=== PATIENT | female | born 1955 | race Caucasian/White ===

== ENCOUNTER 2017-08-26 05:23 | Inpatient (IN) | payer OTHER ==
[2017-08-19 10:29] LABS: ABSOLUTE BASOPHILS # (AUTO) 0.1 10^3/uL (0.0-0.2); ABSOLUTE EOSINOPHILS # (AUTO) 0.2 10^3/uL (0.0-0.6); ABSOLUTE LYMPHOCYTES (AUTO) 1.9 10^3/uL (0.5-4.7); ABSOLUTE MONOCYTES (AUTO) 0.5 10^3/uL (0.1-1.4); ABSOLUTE NEUT (AUTO) 5.5 10^3/uL (1.7-8.2); BASOPHILS % (AUTO) 0.6 % (0-2); EOSINOPHILS % (AUTO) 2.4 % (0-6); HEMATOCRIT 38.8 % (36.0-47.0); LYMPHOCYTES % (AUTO) 23.4 % (13-45); MEAN CORPUSCULAR HEMOGLOBIN 28.3 pg (27.0-33.4); MEAN CORPUSCULAR HGB CONC 33.5 g/dL (32.0-36.0); MEAN CORPUSCULAR VOLUME 85 fl (80-97); MONOCYTES % (AUTO) 5.6 % (3-13); PLATELET COUNT 245 10^3/uL (150-450); RED BLOOD COUNT 4.59 10^6/uL (3.72-5.28); RED CELL DISTRIBUTION WIDTH 13.7 % (11.5-14.0); TOTAL CELLS COUNTED % (AUTO) 100 %; WHITE BLOOD COUNT 8.1 10^3/uL (4.0-10.5)
[2017-08-19 10:54] LABS: ANION GAP 13 (5-19); BLOOD UREA NITROGEN 12 mg/dL (7-20); CALCIUM 10.2 mg/dL (8.4-10.2); CARBON DIOXIDE 27 mmol/L (22-30); CHLORIDE 103 mmol/L (98-107); GLUCOSE 101 mg/dL (75-110); POTASSIUM 4.3 mmol/L (3.6-5.0); SODIUM 142.9 mmol/L (137-145)
--- NOTE | 2017-08-19 23:07 | EKG REPORT ---
SEVERITY:- OTHERWISE NORMAL ECG - SINUS RHYTHM LEFT AXIS DEVIATION : Confirmed by: Rubén Delacruz 19-Aug-2017 23:06:59
[~2017-08-26 05:23] MED LIST: CEFAZOLIN 2 GM/D5W RTU 2 GM/50 ML RTUPB IV PRN; LACTATED RINGERS 1000 ML IV PRN; LIDOCAINE 0.5% INJ-PF (5 MG/ML) 50 ML SDV SUBCUT PRN
--- NOTE | 2017-08-26 05:51 | RADIOLOGY REPORT (SQ) ---
EXAM DESCRIPTION: CHEST SINGLE VIEW CLINICAL HISTORY: preop COMPARISON: None. FINDINGS: Single frontal view of the chest. The cardiomediastinal silhouette has normal size and contour. No consolidation, pneumothorax, or pleural effusion. No displaced rib fractures identified. Upper abdominal soft tissues are unremarkable. IMPRESSION: 1. No acute pulmonary process identified.
[2017-08-26] MEDS ORDERED: FENTANYL CITRATE INJ/PF 100 MCG/2 ML AMPUL ONE ×2 (07:08)
[2017-08-26] MEDS ORDERED: HYDROMORPHONE HCL INJ/PF 2 MG/ML AMPULE ONE (07:08)
[2017-08-26] MEDS ORDERED: ACETAMINOPHEN 100 ML IV ONE (07:09)
[2017-08-26] MEDS ORDERED: DEXMEDETOMIDINE INJ 80 MCG/20 ML VIAL IV ONE (07:09)
[2017-08-26] MEDS ORDERED: MIDAZOLAM 2 MG/2 ML INJ ONE (07:09)
[2017-08-26] MEDS ORDERED: PROPOFOL INJ 200 MG/20 ML VIAL IV ONE (07:09)
[2017-08-26] MEDS ORDERED: BACITRACIN INJ 50,000 UNIT VIAL ONE (07:12)
[2017-08-26] MEDS ORDERED: MEPERIDINE HCL/PF INJ 25 MG/1 ML DISP.SYRIN IV PRN (09:51)
[2017-08-26] MEDS ORDERED: DIPHENHYDRAMINE HCL 50 MG/ML VIAL IV PRN ×2 (09:51→10:53)
[2017-08-26] MEDS ORDERED: FENTANYL CITRATE INJ/PF 100 MCG/2 ML AMPUL IV PRN ×3 (09:51)
[2017-08-26] MEDS ORDERED: PROMETHAZINE HCL INJ 25 MG/1 ML VIAL IV PRN ×2 (09:51)
[2017-08-26] MEDS ORDERED: ACETAMINOPHEN SOLN 325 MG/10.15 ML UDCUP PO PRN (10:45)
[2017-08-26] MEDS ORDERED: HYDROCOD/ACETAMIN 7.5-325 MG/15 ML ORAL SOLN UDCUP PO PRN (10:46)
--- NOTE | 2017-08-26 10:47 | RADIOLOGY REPORT (SQ) ---
EXAM DESCRIPTION: CERV SP 3 VIEW OR LESS; NO CHG FLUORO COMPLETED DATE/TIME: 08/26/2017 10:24 am REASON FOR STUDY: CERVICAL FUSION ASST WITH FLUORO IN OR M50.10 CERVICAL DISC DISORDER W RADICULOPA THY, UNSP CERVICAL M50.30 OTHER CERVICAL DISC DEGENERATION, UNSP CERVICAL REGIO M48.02 SPINAL STENO SIS, CERVICAL REGION COMPARISON: None. FLUOROSCOPY TIME: 0.1 minutes 7 digital fluoroscopic images images saved to PACS. TECHNIQUE: Intra-operative images acquired during surgical procedure to evaluate progress. NUMBER OF IMAGES: 7 digital fluoroscopic images LIMITATIONS: None. FINDINGS: Intra procedural imaging and fluoro during discectomy and fusion at C4-5 and C5-6. Please see the operative report for further details IMPRESSION: Intra procedural imaging and fluoro COMMENT: Quality ID [id number]: Final reports for procedures using fluoroscopy that document radiation exp osure indices, or exposure time and number of fluorographic images (if radiation exposure indices are not available) Please consult full operative report of the attending physician for description of the procedure. TECHNICAL DOCUMENTATION: JOB ID: [id number] [employer]- All Rights Reserved
[2017-08-26] MEDS ORDERED: PHENOL/SODIUM PHENOLATE 100 SPRAY/177 ML BOTTLE PO PRN (10:49)
[2017-08-26] MEDS ORDERED: ONDANSETRON HCL INJ/PF 4 MG/2 ML SDV IV PRN (10:50)
[2017-08-26] MEDS ORDERED: DIAZEPAM 5 MG TABLET PO PRN (10:50)
[2017-08-26] MEDS ORDERED: METHOCARBAMOL 500 MG TABLET PO PRN (10:51)
[2017-08-26] MEDS ORDERED: ACETAMINOPHEN 650 MG SUPP.RECT PR PRN (10:52)
[2017-08-26] MEDS ORDERED: DIPHENHYDRAMINE HCL 25 MG CAPSULE PO PRN (10:52)
--- NOTE | 2017-08-26 10:59 | OPERATIVE REPORT E ---
Operative Report NAME: MARISSA LOVE : 1955 AGE: 62Y DATE OF SURGERY: 08/26/2017 ROOM: OR PREOPERATIVE DIAGNOSIS: C4-5 and C5-6 herniated nucleus pulposus, stenosis, radiculitis, degenerative disk disease, neck pain. POSTOPERATIVE DIAGNOSIS: C4-5 and C5-6 herniated nucleus pulposus, stenosis, radiculitis, degenerative disk disease, neck pain. OPERATION: C4-5, C5-6 anterior cervical diskectomy and fusion with instrumentation, separate interbody spacer from plate, iliac crest aspiration, right iliac crest, through a separate incision, for bone marrow aspirate, and allografting in the interbody spaces at both levels. SURGEON: JOHAN CLAYTON M.D. ANIMAL FEEDER: HENRY MCGEE ANESTHESIA: General endotracheal intubation. ESTIMATED BLOOD LOSS: 75 mL. INDICATIONS: The patient is a 62-year-old female who had continued pain after failing conservative management including injections and physical therapy. After discussion with the patient of the risks, indications, and alternatives, including the risk of infection, bleeding, damaged nerves or blood vessels, the risk of dural failure and spinal headaches, the risk of continued neck pain, the risk of adjacent-level arthritis, the risk of dysphagia or dysphonia, the patient understood these risks and wished to pursue surgical intervention. OPERATIVE TECHNIQUE: The patient was brought into the room, placed under anesthesia. A surgical timeout was performed. The patient received 2 g of Ancef within an hour of the cut time, had SCDs and warm blankets placed on her, had a Holden catheter placed preoperatively, removed at the end of the case. She had neuromonitoring leads placed on her. Medial epicondyles were well padded. Bolsters placed between the shoulder blades and the right iliac crest was aspirated 7 cm posterior to the anterior superior iliac spine after prepping and draping. A total of 4 mL of bone marrow aspirate were obtained. The site was then cleansed and dressed with a Band-Aid. Attention was paid to the cervical spine. Under lateral C-arm fluoroscopy, the skin was marked at C4-5 and C5-6. A transverse incision was marked and the midline was marked, as well. After completion of prepping and draping, having received antibiotics, having SCDs and warm blankets, having baseline SSCP and cranial motor testing, a transverse was carried out on the left side. Dissection was carried down through the skin, the latissimus incised, and the pretracheal fascia was dissected out. Dissection was carried down onto the prevertebral fascia. TrimLine retractors were used to retract mediolaterally. Disk spaces identified and a bent needle was placed into the C5-6 level. Lateral C-arm fluoroscopy was used to verify that level, followed by verification of that level. Attention was paid to placing the [place] pins. [place] pins were positioned in the middle of C5 and the middle of C6 vertebral bodies, used to retract cephalad to caudad, while the TrimLine retractors were used to retract mediolaterally. The microscope was then brought in and, under the microscope, and through the assistance of David Leslie, a complete diskectomy and anterior spur resection was carried out and plates were curetted to good bleeding bone. Posterior longitudinal ligament was resected. Foraminotomies were performed bilaterally and then the appropriate AGX-R spacer, 18 x 14 x 7 degree lordotic 5 mm spacer filled with [place] calcium triphosphate and bone marrow aspirate was placed into the interbody space, attached to an AGX reduced-profile plate 14 wide, 5 high, and then 2 3.6 x 14 mm depth variable angle, self-drilling, self-tapping screws were placed into the vertebral bodies of C5 and C6. Attention was then paid to removing the [place] pin from the C6 vertebral body. The hole was filled with bone wax and the screws moved up. Dissection was carried up more cephalad using [place] to the C4-5 level, placed into the C4 vertebral body, used to retract cephalad to caudad against the C5 screw. Then, the TrimLine retractors were used to retract mediolaterally. They were positioned at the C4-5 level and again, the microscope was repositioned. Again, under the microscope, a complete diskectomy was performed using assistance of David Leslie. Resection of anterior spurs. Posterior longitudinal ligament was also resected, foraminotomies were performed. Small local bleeders were coagulated. FloSeal was utilized to coagulate small local bleeders and then irrigation was carried out, and then the appropriate-sized spacer was determined to be the AGX-R spacer 18 x 14 mm x 7 degree lordotic x 5 mm, filled with Mozaik calcium triphosphate and bone marrow aspirate, attached to an AGX reduced profile plate, 14 wide, 5 high. After positioning it, then again 2 3.6 x 14 mm variable-angle, self-drilling, self-tapping screws were placed into the C4 and the C5 vertebral bodies and then locked to the plate, as was done at C5-6. After locking the screws to the plate at both levels, C-arm fluoroscopy was obtained in the AP and lateral positions. Final cranial motor testing was obtained which was also found to be stable, as was done after placing the C5-6 level. The wound was then irrigated with a liter of Bacitracin irrigation and a 7 flat Qatari was brought in inferolateral to the incision, placed to negative BROCK pressure. The drain stitch was placed to hold the drain in position. The platysma was reapproximated using 2-0 Vicryl and the skin with a running, subcuticular 3-0 Monocryl closure. Wounds were dressed with benzoin, Steri-Strips, 4 x 4, and tape. The patient tolerated the procedure well. Estimated blood loss 75 mL. The patient's condition was stable. She was discharged to the recovery room. The patient did very well. Please note, this procedure could not have been done without the assistance of David Leslie, Physician [employer], working under the microscope and carrying out the diskectomy. DICTATING PHYSICIAN: JOHAN CLAYTON M.D. [id number] PHY#: [id number] ID: [id number] JOB#: [id number] ACCT: [id number] cc:JOHAN CLAYTON M.D. >
[2017-08-26] MEDS ORDERED: DIAZEPAM INJ 10 MG/2 ML DISP.SYRIN IV PRN (11:11)
[2017-08-26] MEDS ORDERED: OXYCODONE HCL IR 5 MG TABLET PO PRN (11:30)
[2017-08-26] MEDS ORDERED: METHOCARBAMOL 1,000 MG in DEXTROSE 5%-WATER 100 ML IV ONE (11:30)
[2017-08-26] MEDS ORDERED: ONDANSETRON HCL INJ/PF 4 MG/2 ML SDV ONE (12:34)
[2017-08-26] MEDS ORDERED: PHENYLEPHRINE HCL INJ/PF 10 MG/1 ML SDV ONE (12:34)
[2017-08-26] MEDS ORDERED: METOCLOPRAMIDE HCL INJ/PF 10 MG/2 ML SDV ONE (12:34)
[2017-08-26] MEDS ORDERED: GLYCOPYRROLATE INJ 0.4 MG/2 ML VIAL ONE (12:34)
[2017-08-26] MEDS ORDERED: SUCCINYLCHOLINE CHLORIDE INJ 200 MG/10 ML VIAL ONE (12:34)
[2017-08-26] MEDS ORDERED: CEFAZOLIN 2 GM/D5W RTU 2 GM/50 ML RTUPB IV SCH (14:00)
[2017-08-26 18:36] VITALS: BP 134/80
--- NOTE | 2017-08-26 19:09 | DISCHARGE SUMMARY E ---
Discharge Summary NAME: MARISSA LOVE : 1955 AGE: 62Y ADMITTED: 08/26/2017 DISCHARGED: 08/26/2017 ADMITTING DIAGNOSIS: C4-5, C5-6 herniated nucleus pulposus, stenosis, radiculitis. DISCHARGE DIAGNOSES: 1. C4-5, C5-6 herniated nucleus pulposus, stenosis, radiculitis. 2. Status post C4-5, C5-6 anterior cervical diskectomy and fusion with instrumentation. BRIEF HISTORY AND COURSE OF HOSPITAL STAY: The patient is a 62-year-old female who came in, underwent a 2 level anterior cervical diskectomy and fusion, was doing very well and requested discharge, and so will be discharged today to follow up with me in the office. MEDICATIONS: 1. Ranitidine 300 mg every evening. 2. Lisinopril/hydrochlorothiazide combination 1 tablet daily. 3. Fexofenadine 180 mg daily. 4. Levothyroxine 0.1 mg daily. 5. Celebrex 200 mg daily, usually once a day but sometimes twice a day. 6. Fluticasone 9.9 mL nasal spray every evening. 7. Singulair 10 mg 1 tablet p.o. daily. 8. Cholecalciferol (vitamin D3) 5000 units once a week. 9. Omeprazole 40 mg once daily. DISCHARGE MEDICATIONS (SPECIFICALLY): 1. Tylenol 500 mg 2 tablets p.o. t.i.d. 2. Keflex 500 mg, 12 tablets; 1 tablet p.o. q.i.d. total 3 days. 3. Zofran ODT 4 mg #30, 1 tablet p.o. q.4 hours p.r.n. nausea. 4. Methocarbamol 750 mg 1-2 tablets p.o. q.8 hours. 5. Oxycodone elixir 5 mg/5 mL, 5-10 mL p.o. q.4-6 p.r.n. pain. ALLERGIES: MORPHINE CAUSES SIGNIFICANT SIDE EFFECTS AND ASPARTAME WELL. SOCIAL HISTORY: The patient lives with her , who is here to take care of her, and she wishes to go home. RECOMMENDATION: To keep the dressing clean and dry. Follow up with us in 10 days. The patient is not to drive or to do any lifting, bending, pushing, or pulling and no neck extension until follow up. Keep the dressing clean and dry. Otherwise the patient's condition is well. The patient has done very well postoperatively, as of this point the patient will be discharged home to follow up. DICTATING PHYSICIAN: JOHAN CLAYTON M.D. [id number] PHY#: [id number] ID: [id number] JOB#: [id number] ACCT: [id number] cc:JOHAN CLAYTON M.D. >
== END 2017-08-26 18:35 | disposition home or self-care (01) | DRG 473 ==
LOC: INOR 05:23
PROVIDERS: ADMIT Orthopaedic Surgery; ATTEND Orthopaedic Surgery
PROC: 0RT30ZZ Resection of Cervical Vertebral Disc, Open Approach (ICD-10-PCS; 2017-08-26)
PROC: 07DR3ZZ Extraction of Iliac Bone Marrow, Percutaneous Approach (ICD-10-PCS; 2017-08-26)
PROC: 0RG20A0 Fusion of 2 or more Cervical Vertebral Joints with Interbody Fusion Device, Anterior Approach, Anterior Column, Open Approach (ICD-10-PCS; principal; 2017-08-26 07:30)
DX: M50.11 Cervical disc disorder with radiculopathy, high cervical region (principal); M50.30 Other cervical disc degeneration, unspecified cervical region; M48.02 Spinal stenosis, cervical region; E03.9 Hypothyroidism, unspecified; K21.9 Gastro-esophageal reflux disease without esophagitis; I10 Essential (primary) hypertension; J45.909 Unspecified asthma, uncomplicated; F17.200 Nicotine dependence, unspecified, uncomplicated; Z90.49 Acquired absence of other specified parts of digestive tract; Z88.6 Allergy status to analgesic agent
CPT/HCPCS: 36415; 630; 71045; 72040; 80048; 84132; 85025; 93005; 93010; C1713; J0131; J0330; J0690; J1170; J2250; J2370; J2405; J2704; J2765; J2800; J3010; J3490